=== PATIENT | male | born 1975 | race Caucasian/White ===

== ENCOUNTER → 2016-09-11 | Outpatient (CLI) | payer OTHER ==
[~2016-09-11] MED LIST: MULTTAB58 PO; saw palmetto PO
--- NOTE | 2016-09-11 11:39 | DIAGNOSTIC IMAGING REPORT ---
ABDOMINAL ULTRASOUND COMPLETE HISTORY: Pain. Nausea. UPPER AB PAIN. COMPARISON: None. FINDINGS: Pancreas: The pancreas demonstrates a normal echotexture. Liver: Fatty infiltration Gallbladder: Several small gallstones and gallbladder polyps. CBD: 3 mm Kidneys: No hydronephrosis. Spleen: Normal in size. Aorta: Normal in caliber. IVC: Patent. IMPRESSION: Several small gallstones and gallbladder polyps. Normal bile ducts. Fatty infiltration of liver. Electronically signed by: Ludwig Santana M.D. 09/11/2016 11:37 AM Dictated Date/Time: 09/11/2016 11:36 AM
== END | disposition home or self-care (01) ==
LOC: C.ULTR 10:48
PROVIDERS: ATTEND Family Medicine
DX: K80.20 Calculus of gallbladder without cholecystitis without obstruction (principal); K82.4 Cholesterolosis of gallbladder; K76.0 Fatty (change of) liver, not elsewhere classified

== ENCOUNTER 2017-07-07 18:48 | Emergency (ER) | payer OTHER ==
[~2017-07-07] VITALS: Ht 162.6 cm; Wt 81.6 kg
[2017-07-07 18:50] VITALS: TEMP 36.5; Ht 162.6 cm; Wt 81.6 kg
[2017-07-07] MEDS ORDERED: IBUPROFEN 600 MG TAB PO STA (19:04)
[2017-07-07] MEDS ORDERED: ACETAMINOPHEN 500 MG TAB PO STA (19:04)
[2017-07-07] MEDS ORDERED: NORCO 5/325MG HOME PACK PO ONE (19:15)
--- NOTE | 2017-07-07 19:32 | EMERGENCY ROOM VISIT NOTE ---
ED Visit Note First contact with patient: 18:56 CHIEF COMPLAINT: Burn left hand HISTORY OF PRESENT ILLNESS: This 42-year-old male presents the ER with chief complaint of a burn to his left hand. The patient states that he was pouring linn grease into a can and it spilled over his left hand. The patient states he ran it under cold water for 5 minutes. He has not taken anything for pain. He drove himself to the emergency room. The patient denies any difficulty making a fist. The patient's tetanus is up-to-date. The patient is right-hand dominant. REVIEW OF SYSTEMS: 6 system review was performed and was negative unless stated otherwise in history of present illness. PMH: The patient is healthy; there is no significant medical or surgical history. SOCIAL HISTORY: The patient denies tobacco use but admits to occasional alcohol use. PHYSICAL EXAM: Vital Signs: Were reviewed Reviewed Nurse's notes. GENERAL: 42- year-old male appears in no acute distress. MENTAL Status: Alert and oriented 3. LEFT HAND: There is erythema on the dorsal aspect of the left hand over the left thumb and left index finger. On the palmar aspect there is a small area of erythema on the tip of the third finger. The large blister has burst in the webspace between the first and second digits on the dorsal aspect. There is no discoloration .the patient is able to make a fist and then extend his fingers without any difficulty. EMERGENCY DEPARTMENT COURSE: The patient was evaluated. The patient was given Motrin 600 mg by mouth and Tylenol 1 g by mouth for pain since he drove himself to the emergency room. His hand was soaked in cool saline for 15 minutes. The loose skin from the blister was removed with scissors. Antibiotic ointment and a bandage was applied. I did offer the patient to take pictures to send to [facility] burn [facility] to see if he needed follow-up. He stated he would not go to [place] for follow-up so as there is no use taking the pictures. The patient was given a [employer] home pack. The patient was discharged home in stable condition. DIAGNOSIS: Second degree burn left hand DISCHARGE INSTRUCTIONS & TREATMENT: Antibiotic ointment and a bandage to area until the open area heals. Tylenol and/or ibuprofen as needed for pain. Any signs of infection, follow-up with your family doctor. Make sure you are able to make a fist and extend her fingers fully. If you cannot, follow-up with your family doctor for referral. Current/Historical Medications No Active Prescriptions or Reported Meds Allergies Coded Allergies: Molds and Smuts (Verified Allergy, Unknown, unknown, 07/07/17) Vital Signs Date Time Temp Pulse Resp B/P (MAP) Pulse Ox O2 Delivery O2 Flow Rate FiO2 07/07/17 18:53 99 Room Air 07/07/17 18:50 36.5 85 18 140/87 99 Room Air Departure Information Prescriptions No Active Prescriptions or Reported Meds Referrals Zoe Perla D.O. (PCP) Patient Instructions [facility]
[2017-07-07 19:54] VITALS: BP 124/69; PULSE 79; O2SAT 97
== END 2017-07-07 19:55 | disposition home or self-care (01) ==
LOC: C.EDB 18:50 → C.EDD 19:55
DX: T23.202A Burn of second degree of left hand, unspecified site, initial encounter (principal); X10.2XXA Contact with fats and cooking oils, initial encounter; Z91.048 Other nonmedicinal substance allergy status